=== PATIENT | female | born 1980 | race African-American/Black ===

== ENCOUNTER 2018-04-11 09:47 | Emergency (ER) | payer OTHER ==
[~2018-04-11] VITALS: Ht 167.6 cm; Wt 104.3 kg
[~2018-04-11 09:47] MED LIST: ALBUTEROL SULF8.5 GM INH; AMOXICILLIN500 MG ORAL; AZITHROMYCIN250 MG ORAL; CEPHALEXIN500 MG ORAL; CILOXAN 0.3% O1 DROP LEFT EYE; CORTISPORIN EAR10 ML RIGHT EAR; CYCLOBENZAPRINE10 MG ORAL; HERBS; IBUPROFEN600 MG ORAL; PREDNISONE20 MG ORAL; PRENATAL DHA200 MG PO; VITAMIN B COMP1 EAC5 PO
[2018-04-11] MEDS ORDERED: NKM (10:03)
--- NOTE | 2018-04-11 10:14 | Emergency Room Report ---
History of Present Illness General Chief Complaint: Lower Extremity Injury Source: Patient Present Illness HPI Patient is a 37-year-old female presented after increased left ankle pain. Patient reports having fall from one step last night. Injury occurred abruptly 12 hours prior to arrival. She denies any loss of consciousness. She reports having pain to the left ankle and left foot worse on the lateral aspect. The pain was worse or movement. She reports having prior injury to her left ankle. The she reports being able to bear weight last night but this had changed overnight. Allergies: Coded Allergies: No Known Allergies (Unverified , 11/05/12) Patient History Past Medical History: see triage record Now: No Reviewed Nursing Documentation: PMH: Agreed; PSxH: Agreed Nursing Documentation-PMH Past Medical History: No Stated History Review of Systems All Other Systems: negative except mentioned in HPI Physical Exam Vital Signs Date Time Temp Pulse Resp B/P (MAP) Pulse Ox O2 Delivery O2 Flow Rate FiO2 04/11/18 09:53 97.9 96 18 105/59 98 Room Air General Appearance: well appearing, no apparent distress, alert Head: normocephalic, atraumatic ENT: hearing grossly normal, normal voice Neck: full range of motion, supple Respiratory: no respiratory distress, speaking full sentences Musculoskeletal: swelling Neurologic: normal inspection, alert, oriented x3, normal gait Psychiatric: mood/affect normal Skin: no rash Medical Decision Making Diagnostic Impression: Primary Impression: Left ankle sprain ER Course Patient presented for ankle pain. Differential diagnosis included was not limited to vascular insufficiency, fracture, osteomyelitis, sprain, deep venous thrombosis. X-ray imaging of the ankle was obtained. Last Vital Signs Date Time Temp Pulse Resp B/P (MAP) Pulse Ox O2 Delivery O2 Flow Rate FiO2 04/11/18 09:53 97.9 96 18 105/59 98 Room Air Status: improved Disposition: HOME, SELF-CARE Condition: Stable Alvaro Tomas MD Apr 11, 2018 10:14
[2018-04-11] MEDS ORDERED: IBUPROFEN600 MG ORAL (10:55)
--- NOTE | 2018-04-11 11:20 | Diagnostic Imaging Report ---
LEFT ANKLE, Views INDICATION: Pain COMPARISON: None FINDINGS: 3 views of the left ankle are obtained. 10 mm os trigonum. Bony structures are intact. Bone mineralization is within normal limits. Joint spaces are preserved. Diffuse soft tissue swelling. No radio- opaque foreign bodies. IMPRESSION: No acute fracture or subluxation identified.
--- NOTE | 2018-04-11 11:24 | Diagnostic Imaging Report ---
LEFT FOOT, Views INDICATION: Pain COMPARISON: None FINDINGS: 3 views of the left foot are obtained. Bony structures are intact. Bone mineralization is within normal limits. Joint spaces are preserved. Soft tissues within normal limits. No radio-opaque foreign bodies. IMPRESSION: No acute fracture or subluxation identified.
[2018-04-11 11:36] VITALS: BP 110/61
== END 2018-04-11 11:36 | disposition home or self-care (01) ==
LOC: EMR 10:09
DX: S93.402A Sprain of unspecified ligament of left ankle, initial encounter (principal); W10.9XXA Fall (on) (from) unspecified stairs and steps, initial encounter; Y92.9 Unspecified place or not applicable
CPT/HCPCS: 81025; 99283